=== PATIENT | male | born 1950 | race Caucasian/White ===

== ENCOUNTER 2017-01-17 06:56 | Day surgery (SDC) | payer MEDICARE, SELFPAY ==
[2017-01-13 09:08] LABS: BASOPHILS 0.5 %; BASOPHILS ABSOLUTE 0.05 10/3/uL (0.0-0.16); EOSINOPHILS 0.8 %; EOSINOPHILS ABSOLUTE 0.08 10/3/uL (0.0-0.53); HEMATOCRIT 51.4 % (40.0-51.0); IMMATURE GRANULOCYTES 0.6 %; IMMATURE GRANULOCYTES ABSOLUTE 0.06 10/3/uL (0.0-0.11); LYMPHOCYTES 29.6 %; LYMPHOCYTES ABSOLUTE 2.83 10/3/uL (0.67-4.30); MEAN CORPUSCULAR VOLUME 94.1 fL (80-100); MEAN PLATELET VOLUME 10.1 fL (9.2-13.0); MONOCYTES 7.6 %; MONOCYTES ABSOLUTE 0.73 10/3/uL (0.21-1.20); NEUTROPHILS 60.9 %; NEUTROPHILS ABSOLUTE 5.81 10/3/uL (2.02-8.40); RBC DISTRIBUTION WIDTH 13.3 % (12.0-16.0); RED CELL COUNT 5.46 10/6/uL (4.7-6.1); WHITE BLOOD CELLS 9.6 10/3/uL (4.5-10.5)
[2017-01-13 09:09] LABS: MANUAL DIFF NO %; PLATELET COUNT 166 10/3/uL (150-400)
[2017-01-13 09:26] LABS: BUN (BLOOD UREA NITROGEN) 8 MG/DL (6-23); CALCIUM, SERUM 8.4 MG/DL (8.5-10.4); CHLORIDE, SERUM 106 MMOL/L (96-112); CO2 (CARBON DIOXIDE) 26 MMOL/L (24-34); CREATININE 0.83 MG/DL (0.70-1.30); GFR AFRICAN AMERICAN 108 ML/MIN (>=60); GFR NON AFRICAN AMERICAN 93 ML/MIN (>=60); GLUCOSE, SERUM 142 MG/DL (60-99); POTASSIUM, SERUM 4.4 MMOL/L (3.5-5.3); SODIUM, SERUM 140 MMOL/L (135-148)
--- NOTE | ~2017-01-17 | OP ---
Record Of Operation [facility] [address] [place]. [address] NAME: AYAH RUTLEDGE : 54 STATUS : REG [facility]#: [id number] AGE: 66 ADM/REG DATE : 01/17/17 MR#: [id number] REPORT SERV DATE: 01/17/17 DICTATED BY: PAXTON TALBERT DATE: 01/17/17 REPORT STATUS : Draft TRANSCRIBED BY: MELY DATE: 01/17/17 DATE OF PROCEDURE: 01/17/2017 PREOPERATIVE DIAGNOSIS: Phimosis. POSTOPERATIVE DIAGNOSIS: Phimosis. PROCEDURE PERFORMED: Circumcision. ANESTHESIA: General. COMPLICATIONS: None. DRAINS: None. SPECIMENS: Foreskin. ESTIMATED BLOOD LOSS: 5 mL. INDICATION: Mr. Rutledge is a 66-year-old with worsening phimosis which is causing difficulty with hygiene. He is unable to direct his urinary stream and has not been to retract foreskin for years now. TECHNIQUE: Ancef was given preop. He is brought to the operating room, general anesthesia was administered. Genitals and perineum were prepped and draped in the supine fashion. Physical exam showed 10-[place]rainian phimosis. I prepped the inner prepuce with a Q-tip. A dorsal slit was performed sharply. This allowed retraction of the foreskin. There were no lesions on the glans and the glans skin itself was friable. There was a normal meatus. A standard sleeve-type circumcision was performed. The proximal and distal skin edges were incised sharply. I divided the remaining dorsal foreskin sharply and removed the foreskin with Bovie. The wound was irrigated. I reapproximated the skin in four quadrants with interrupted 3-0 Vicryl. The remainder of the skin was reapproximated with interrupted 3-0 chromic. A penile block was performed with 0.5% Marcaine. Xeroform dressing was applied. He tolerated the procedure and was taken to the recovery room in satisfactory condition. He will avoid sexual activity for six weeks. Prescription for 21 Lortab was given. NORBERT/MELY Paxton Talbert M.D. / [id number] CC: Record Of Operation [place] [id number] [address] [address] NAME: AYAH RUTLEDGE : 54 STATUS : REG [facility] PAT#: [id number] AGE: 66 ADM/REG DATE : 01/17/17 MR#: [id number] REPORT SERV DATE: 01/17/17 DICTATED BY: PAXTON TALBERT DATE: 01/17/17 REPORT STATUS : Draft TRANSCRIBED BY: MODL DATE: 01/17/17 Augustine Housotn D.O.
[~2017-01-17 06:56] MED LIST: *DENIES; ASAB PO; TUMSROLL PO; ZANTAC 75 PO
== END 2017-01-17 16:54 | disposition home or self-care (01) ==
LOC: SDC 06:56
PROVIDERS: Urology
PROC: 0VTTXZZ Resection of Prepuce, External Approach (ICD-10-PCS; principal; 2017-01-17 08:30)
DX: N47.1 Phimosis (principal); Z87.891 Personal history of nicotine dependence; M54.9 Dorsalgia, unspecified; M25.559 Pain in unspecified hip; Z88.5 Allergy status to narcotic agent; Z88.0 Allergy status to penicillin
CPT/HCPCS: 80048; 85025; 88304; 93005; J0330; J0690; J2250; J2405; J2710; J3010